=== PATIENT | male | born 1935 | race Caucasian/White ===

== ENCOUNTER 2016-07-19 20:05 | Inpatient (IN) | payer MEDICARE, OTHER ==
--- NOTE | ~2016-07-19 | HP ---
History And Physical [place] [id number] [place]. [address] NAME: NIURKA GALLO : 34 STATUS : ADM IN PAT#: [id number] AGE: 80 ADM/REG DATE : 07/19/16 MR#: [id number] REPORT SERV DATE: 07/20/16 DICTATED BY: JESSIKANIURKA ZARA DATE: 07/19/16 REPORT STATUS : Draft TRANSCRIBED BY: MODL DATE: 07/19/16 DATE OF ADMISSION: 07/19/2016 POINT OF ENTRY: [facility] Emergency Department Primary care physician is Dr. Reese of [place], [place]. PRIMARY AGRICULTURAL ENGINEER: Dr. Solo Anand. PRIMARY INFORMATION TECHNOLOGY ANALYST: Dr. Lawton of [place], [place]. CHIEF COMPLAINT: Low blood counts, black stools. HISTORY OF PRESENT ILLNESS: Mr. Gallo is an 80-year-old gentleman with a history of atrial fibrillation, on Xarelto anticoagulation; coronary artery disease; diastolic dysfunction, wci-fuucphq-saksbjnbm diabetes mellitus 2; and hypertension, who presents to the emergency department today with reports of a few week history of black tarry stools, associated shortness of breath, and weakness. Majority of history is obtained from the patient's who is at bedside as the patient has had anoxic brain injury in the past secondary to ventricular fibrillation arrest and is a poor historian. reports that he has had intermittent black tarry stools over the past few weeks. She also noted that he has become short of breath and very weak over the last few weeks which prompted their visit to the primary care doctor's office today for a visit and labs which returned as abnormally low. I do not have the results of those at this time and they were instructed to present to the emergency department. reports the patient has had a bleed on Coumadin about six months ago and underwent EGD by Dr. Lawton which at that time showed a slow bleed, location unknown that required some clipping. The patient is currently on aspirin as well as Xarelto. She denies any NSAID use, BC Powder or Goody's Powder, Plavix. He is on omeprazole at home. Initial evaluation in the emergency department with a hemoglobin of 7.7, hematocrit is 23.4. We do not have any recent labs for comparison. His occult stool was grossly positive for melena. Remainder of his labs otherwise unremarkable. Vital signs are stable. The patient was started on Protonix bolus and then a drip and admitted to the Hospitalist Service. REVIEW OF SYSTEMS: Comprehensive system otherwise negative unless listed in history of present illness. PREVIOUS MEDICAL HISTORY: 1. Coronary disease with prior angioplasty. 2. Carotid arterial disease, status post angioplasty and stenting. 3. Hypertension. History And Physical [address] [address] NAME: NIURKA GALLO : 34 STATUS : ADM IN [facility]#: [id number] AGE: 80 ADM/REG DATE : 07/19/16 MR#: [id number] REPORT SERV DATE: 07/20/16 DICTATED BY: NIURKA ROSEN DATE: 07/19/16 REPORT STATUS : Draft TRANSCRIBED BY: GREGG DATE: 07/19/16 4. History of VF arrest with anoxic brain injury. 5. Chronic left bundle branch block. 6. Atrial fibrillation, on Xarelto anticoagulation. 7. Diastolic dysfunction. 8. Rzj-pqtbqqw-bjlarhhrx diabetes mellitus type 2. 9. BPH. 10.History of prior GI bleed. 11.COPD. SURGICAL HISTORY: 1. Appendectomy. 2. Back surgery. 3. Carotid arterial stenting. 4. Cardiac angioplasty. 5. BiV pacemaker/MANAGER BACKGROUND. 6. TURP. ALLERGIES: TO CODEINE. HOME MEDICATIONS: 1. Tudorza one puff inhalation b.i.d. 2. Norvasc 10 mg daily. 3. Aspirin 81 mg daily. 4. Diana 180 mg daily. 5. Lasix 40 mg daily. 6. Neurontin 600 mg b.i.d. 7. Namenda 10 mg b.i.d. 8. Metformin 500 mg t.i.d. 9. Toprol-XL 50 mg b.i.d. 10.Multivitamin one tab daily. 11.[place]-3 fatty acid. 12.Fish oil 1000 mg daily. 13.Omeprazole 20 mg daily. 14.Xarelto 20 mg q.h.s. 15.Crestor 5 mg at bedtime. 16.Valsartan 320 mg daily. SOCIAL HISTORY: Denies any tobacco, alcohol, or illicits. FAMILY MEDICAL HISTORY: Mother with Alzheimer's dementia. Father with coronary artery disease. Siblings with Alzheimer's dementia. LABS AND IMAGIN. White count is 9.8, hemoglobin is 7.7, hematocrit is 23.4, and platelet count is 198. INR 1.4. 2. Sodium is 139, potassium 4.4, chloride 106, carbon dioxide 27, BUN 21, creatinine 1.06, glucose is 103, calcium is 8.6. Protein is 6.3, albumin is 3.0, bilirubin is 0.2, ALT History And Physical [address] [address] NAME: NIURKA GALLO : 34 STATUS : ADM IN PAT#: [id number] AGE: 80 ADM/REG DATE : 07/19/16 MR#: [id number] REPORT SERV DATE: 07/20/16 DICTATED BY: NIURKA ROSEN DATE: 07/19/16 REPORT STATUS : Draft TRANSCRIBED BY: MODLanette DATE: 07/19/16 is 18, AST 14, alkaline phosphatase is 76. 3. Chest x-ray and EKG are pending at the time of dictation. PHYSICAL EXAMINATION: VITAL SIGNS: Temperature is 98.6 degrees Fahrenheit, pulse is 83, respirations 16, saturating 97% on room air, blood pressure 154/70, on recheck, blood pressure is 156/78, pulse is 78. GENERAL: The patient is awake, alert, in no acute distress. Resting comfortably in bed. He is a well-developed, well-nourished, elderly male. is at bedside. HEENT: Atraumatic and normocephalic. Moist mucous membranes. Pupils are equal, round, and reactive to light and accommodation. Extraocular eye movements are intact. Does have some conjunctival and oral mucosal pallor. NECK: No jugular venous distention. No carotid bruits. CARDIAC: Regular rate and rhythm. No murmurs, rubs, or gallops. Normal S1 and S2. LUNGS: Clear to auscultation bilaterally. No wheezes, rhonchi, or rales. ABDOMEN: Soft, nontender, and nondistended with good bowel sounds. No rebound or guarding. No rigidity. EXTREMITIES: Warm and perfused. No cyanosis or clubbing. He has trace pedal edema. SKIN: Warm and dry. PSYCH: Affect is appropriate. NEURO: Alert and oriented x3. Cranial nerves II through XII are grossly intact. Speech is normal. Gait not assessed. ASSESSMENT AND PLAN: Mr. Gallo is an 80-year-old gentleman with a prior history of gastrointestinal bleed on anticoagulation, who presents with a few week history of intermittent black and tarry stools with associated shortness of breath and weakness and found to have severe anemia secondary to likely upper recurrent upper gastrointestinal bleed. Problem List: 1. Recurrent upper gastrointestinal bleed with melena. 2. Acute blood loss anemia. 3. Shortness of breath. 4. Weakness. 5. History of coronary artery disease. 6. History of diastolic dysfunction. 7. History of atrial fibrillation, on Xarelto. PLAN: 1. Upper GI bleed. We will hold the patient's aspirin as well as Xarelto. Trend out his hemoglobin and hematocrits q.6 hours and transfuse for hemoglobin less than 7. We will consult Gastroenterology as he does not have a local gastrologist here in town. We will place the patient n.p.o. after midnight and place the patient on a Protonix drip as he has received a Protonix bolus here in the ER. 2. Acute blood loss anemia. Transfuse to hemoglobin less than 7, q.6 hours hemoglobin and hematocrits. 3. Shortness of breath and weakness, likely secondary to symptomatic anemia, but given his History And Physical [address] [address] NAME: NIURKA GALLO : 34 STATUS : ADM IN [facility]#: [id number] AGE: 80 ADM/REG DATE : 07/19/16 MR#: [id number] REPORT SERV DATE: 07/20/16 DICTATED BY: NIURKA ROSEN DATE: 07/19/16 REPORT STATUS : Draft TRANSCRIBED BY: MODLanette DATE: 07/19/16 cardiac history, we will check an EKG, chest x-ray, BNP as well as cardiac enzymes. Provide some very gentle IV fluid hydration. 4. Diastolic dysfunction. There does not appear to be any evidence of systolic congestive heart failure. His last echocardiogram from fall in our system shows preserved ejection fraction with some mild diastolic dysfunction. does report some history of volume overload in the past. We will continue the patient's home Lasix and give Lasix after transfusion if it is needed. 5. Puf-bwuhqjm-bahlkoyux diabetes mellitus type 2. Holding the patient's metformin. Place him on a sliding scale. 6. Coronary artery disease. The patient denies any chest pain, but does report shortness of breath and weakness which I suspect again is symptomatic anemia. We will check an EKG and cardiac enzymes. 7. DVT prophylaxis. TEDs and SCDs given bleeding. 8. Code Status: The patient wishes to be full code. JCAmari/MODL Niurka Rosen MD / [id number] CC: MD Dr. Hugh Rogel
--- NOTE | ~2016-07-19 | CN ---
Consultation Report [facility] [address] [place]. [address] NAME: NIURKA GALLO : 34 STATUS : ADM IN PAT#: [id number] AGE: 80 ADM/REG DATE : 07/19/16 MR#: [id number] REPORT SERV DATE: 07/21/16 DICTATED BY: DULCE MARIA PETERSON DATE: 07/21/16 REPORT STATUS : Draft TRANSCRIBED BY: MODL DATE: 07/21/16 GI CONSULTATION DATE OF CONSULTATION: 07/20/2016 REASON FOR CONSULTATION: Anemia and melena. HISTORY OF PRESENT ILLNESS: Mr. Gallo is an 80-year-old gentleman with a history of diabetes, coronary artery disease, COPD, had a recent episode of ventricular fibrillation and subsequent anoxic brain injury, and has had an EGD approximately six months ago per his for GI bleed, and at that time, reportedly had a "slow bleed," which was clipped, unclear exactly the nature of this bleed. He had done well up until recently when he had one week of dark stools, increasing weakness, and shortness of breath. Subsequently, he was brought to the hospital by his . PAST SURGICAL HISTORY: TURP, pacemaker placement, back surgery, appendectomy. PAST MEDICAL HISTORY: Coronary artery disease, status post stent placement; BPH; diabetes; COPD; hypertension; ventricular fibrillation; anoxic brain injury. SOCIAL HISTORY: No smoking, alcohol, or drug use. MEDICATIONS: Reviewed. ALLERGIES: REVIEWED. PHYSICAL EXAMINATION: VITAL SIGNS: Patient is afebrile. Vital signs are stable. GENERAL: The patient is awake, alert, and oriented. HEENT: Atraumatic, normocephalic. Anicteric. Mucous membranes moist. CARDIAC: S1, S2. ABDOMEN: Soft, obese, nontender, nondistended. Bowel sounds normoactive. LABORATORY DATA: WBC 10.2, hemoglobin 7.9, hematocrit 24.4, platelets 216. INR is 1.2. Sodium 140, potassium 4.2, chloride 108, bicarb 24, BUN 17, creatinine 0.9, glucose 203. IMPRESSION AND PLAN: Concern for upper GI bleed given dark stools. Has history a "slow bleed," status post clipping on EGD six months ago. Prior to that, five years ago, when he also had an episode of melena on Coumadin. Has been off Xarelto the past few days, last dose was Tuesday night. We will also have him scheduled for an EGD on the with anesthesia to sedate. I reviewed the procedure, indications, risks, benefits, and alternatives, and they are agreeable to proceed. Consultation Report [facility] [address] [place] [address] NAME: NIURKA GALLO : 34 STATUS : ADM IN [facility]#: [id number] AGE: 80 ADM/REG DATE : 07/19/16 MR#: [id number] REPORT SERV DATE: 07/21/16 DICTATED BY: DULCE MARIA PETERSON DATE: 07/21/16 REPORT STATUS : Draft TRANSCRIBED BY: GREGG DATE: 07/21/16 NICKIE/GREGG Dulce Maria Peterson MD / [id number] CC: Vick Lawson M.D.
--- NOTE | ~2016-07-19 | EGD ---
EGD REPORT [facility] [address] [place] [place] [address] NAME: NIURKA GALLO : 34 STATUS : ADM IN PAT#: [id number] AGE: 80 ADM/REG DATE : 07/19/16 MR#: [id number] REPORT SERV DATE: 07/22/16 DICTATED BY: DULCE MARIA ESCOBEDO DATE: 07/22/16 REPORT STATUS : Draft TRANSCRIBED BY: [employer] DATE: 07/22/16 [facility] Center Patient Name: Niurka Gallo Date of : 1935 Attending MD: DULCE MARIA ESCOBEDO, Procedure Date No Time: 07/22/2016 Procedure: Upper GI endoscopy Indications: Anemia, Heme positive stool, Melena Medicines: Propofol per Anesthesia Complications: No immediate complications. Estimated blood loss: None. Procedure: Pre-Anesthesia Assessment: - ASA Grade Assessment: IV - A patient with severe systemic disease that is a constant threat to life. After obtaining informed consent, the endoscope was passed under direct vision. Throughout the procedure, the patient's blood pressure, pulse, and oxygen saturations were monitored continuously. The GIF [id number] [id number] was introduced through the mouth, and advanced to the third part of duodenum. As no bleeding was seen up to the third portion of the duodenum, the endoscope was removed and a pediatric colonoscope was used for push enteroscopy to evaluate for bleeding more distally. The PCF [id number] was introduced through the mouth, and advanced to the mid-jejunum. The upper GI endoscopy was accomplished with ease. The patient tolerated the procedure well. Findings: The examined esophagus was normal. The Z-line was found 43 cm from the incisors. Diffuse mild inflammation characterized by congestion (edema) and erythema was found in the gastric antrum. No biopsies or other specimens were collected for this exam. Two diminutive sessile polyps with no bleeding were found in the gastric fundus and in the gastric body. No biopsies or other specimens were collected for this exam. The examined duodenum was normal. The examined jejunum was normal. Impression: - Normal esophagus. - Z-line 43 cm from the incisors. - Gastritis. No specimens collected. - Two gastric polyps. No specimens collected. - Normal examined duodenum. - Normal examined jejunum. EGD REPORT [address] [place]. [address] NAME: NIURKA GALLO : 34 STATUS : ADM IN PAT#: [id number] AGE: 80 ADM/REG DATE : 07/19/16 MR#: [id number] REPORT SERV DATE: 07/22/16 DICTATED BY: DULCE MARIA ESCOBEDO DATE: 07/22/16 REPORT STATUS : Draft TRANSCRIBED BY: [employer] DATE: 07/22/16 Recommendation: - [facility] patient to [facility] for [facility] care. - Continue present medications. - Use Protonix (pantoprazole) 40 mg PO daily. - Full liquid diet today. - Obtain records from outlying facility (endoscopies/pathology). - If re-bleeds, consider capsule endoscopy Procedure Code(s): --- Professional --- 90981, Esophagogastroduodenoscopy, flexible, transoral; diagnostic, including collection of specimen(s) by brushing or washing, when performed (separate procedure) Diagnosis Code(s): --- Professional --- K29.70, Gastritis, unspecified, without bleeding K31.7, Polyp of stomach and duodenum D64.9, Anemia, unspecified R19.5, Other fecal abnormalities K92.1, Melena CPT copyright 2013 [employer]. All rights reserved. The codes documented in this report are preliminary and upon medical records coder review may be revised to meet current compliance requirements. DULCE MARIA ESCOBEDO, 07/22/2016 8:14 AM This report has been signed electronically. Number of Addenda: 0 Note Initiated On: 07/22/2016 7:37 AM Scope Withdrawal Time 0 hours 0 minutes 0 seconds [address] [place] [address]
--- NOTE | ~2016-07-19 | CN ---
Consultation Report [facility] [address] [place]. [address] NAME: NIURKA GALLO : 34 STATUS : ADM IN PAT#: [id number] AGE: 80 ADM/REG DATE : 07/19/16 MR#: [id number] REPORT SERV DATE: 07/20/16 DICTATED BY: SKYLAR BARRY DATE: 07/20/16 REPORT STATUS : Draft TRANSCRIBED BY: MODLanette DATE: 07/20/16 CARDIOLOGY CONSULTATION DATE OF CONSULTATION: INDICATION: GI bleed. HISTORY: The patient is an 80-year-old white male, usually followed by my partner, Dr. Anand. He has a history of sick sinus syndrome with paroxysmal atrial fibrillation ([id number] score of 4). He has a biventricular pacing system in place and his EP care is rendered by Dr. Hopper. Back in January, he had 58 hours of atrial fibrillation, and at that time, he was placed on Xarelto. He had done well until a couple of weeks ago when his family noted progressive weakness. The patient has had two prior GI bleeds one while on Coumadin and another slower bleed while on aspirin and Plavix. Shy of these issues, the patient lives independently, is integrated into his family, carries out his activities of daily living at home without difficulty. He is presently resting comfortably. CURRENT HOME MEDICATIONS: Aclidinium bromide b.i.d., amlodipine 10 per day, aspirin 81 a day, fexofenadine 180 a day, furosemide 40 a day, gabapentin 600 b.i.d., memantine hydrochloride 10 b.i.d., metformin 500 three times a day, metoprolol 50 b.i.d., multivitamins daily, omega-3 fatty acids daily, omeprazole 20 a day, rivaroxaban 20 a day, rosuvastatin 5 a day, valsartan 320 per day. ALLERGIES OR INTOLERANCES: Codeine. SOCIAL HISTORY: Lives independently, has a previous history of tobacco exposure. FAMILY HISTORY: Father had of an VT. Mother also had coronary artery disease. PAST MEDICAL HISTORY/REVIEW OF SYSTEMS: Positive for left ventricular dysfunction and the resynchronization therapy. Prior to that, he had underlying left bundle-branch block. He has aortic sclerosis. Last ejection fraction was 60% on 05/19/2015. He had a PCI in 1997 at [facility]. He has a history of carotid disease and right internal carotid angioplasty, 09/12/2009. It was around that time that he had a cardiac arrest. The details of that are not clear based on what his family members are saying. He has a history of hypertension, type 2 diabetes mellitus, iron deficiency anemia, and arrest at an outside hospital documented 09/2002. PHYSICAL EXAMINATION: GENERAL: An 80-year-old white male, pleasant, comfortable. Consultation Report [facility] [address] [facility] [place]. [address] NAME: NIURKA GALOL : 34 STATUS : ADM IN PAT#: [id number] AGE: 80 ADM/REG DATE : 07/19/16 MR#: [id number] REPORT SERV DATE: 07/20/16 DICTATED BY: SKYLAR BARRY DATE: 07/20/16 REPORT STATUS : Draft TRANSCRIBED BY: GREGG DATE: 07/20/16 VITAL SIGNS: Blood pressure 130/72, pulse 70 and regular, respirations 18. SKIN: No xanthelasmas. HEENT: Normocephalic. There is no pallor. Sclerae white. NECK: JVD is not elevated. CHEST: No crackles. CARDIAC: S1 normal, S2 is singular. There is a 1/6 systolic ejection murmur transmitted to the base. ABDOMEN: Soft. EXTREMITIES: Without edema. No clubbing. NEUROLOGIC: No focal deficits. LABORATORY DATA: BUN 17, creatinine 0.89, white count 10.2, hemoglobin 2.9, INR 1.2. ECG shows paced AV rhythm, rate 71. IMPRESSION: GI bleed. Agree that he will have to hold his Xarelto for the time being. Further recommendations as his course evolves. Whether or not long-term anticoagulation can be maintained will have to be discussed with the interior plant caretaker and family. RODOLFO/GREGG Skylar Barry M.D. / [id number] CC: Vick Lawson M.D. [facility]
--- NOTE | ~2016-07-19 | DS ---
Discharge Summary [facility] [address] [place]. [address] NAME: NIURKA GALLO : 33 STATUS : DIS IN PAT#: [id number] AGE: 80 ADM/REG DATE : 07/19/16 MR#: [id number] REPORT SERV DATE: 07/27/16 DICTATED BY: ERENDIRA LAWSON DATE: 07/23/16 REPORT STATUS : Draft TRANSCRIBED BY: MODL DATE: 07/23/16 ADMISSION DATE: 07/19/2016 DISCHARGE DATE: 07/23/2016 CONSULTANTS: 1. Jake Barry M.D. and Solo Anand M.D., Cardiology. 2. Christine Peterson MD, GI. DISCHARGE DIAGNOSES: 1. Acute upper gastrointestinal bleed with melena. 2. Acute blood loss anemia. 3. Sick sinus syndrome with previous paroxysmal atrial fibrillation and complete heart block with a biventricular implantable cardioverter defibrillator. 4. History of ventricular fibrillation arrest years ago due to severe hypokalemia with resultant hypoxic brain injury. 5. Diabetes mellitus type 2. 6. Hypertension. 7. Restless legs syndrome. 8. History of coronary artery disease with previous percutaneous transluminal coronary angioplasty. 9. History of peripheral arterial disease with previous carotid stent. 10.Previous heavy smoker more than 35 years ago. 11.Previous drug abuse more than 35 years ago. HISTORY: The patient presented to [facility] Emergency Room with black tarry stools. The patient had previous cardiac arrest due to severe hypokalemia and has some anoxic brain injury, so he does not pay attention to his stools, but his had just noticed that they had turned black. She is not exactly sure how long that had been going on because he often just goes into the restroom on his own and does not think to talk to her about it. The patient has had a previous hospitalization for upper gastrointestinal bleed with shock, and he was in [facility] Intensive Care. He has also had a least one other episode of GI bleed, was endoscoped by his GI physician in [place], and no specific cause was found. The patient has been on aspirin and Xarelto because of his previous coronary artery disease and because of his underlying atrial fibrillation. Most recent EGD that I could find from his GI doctor's records sent to us from [facility] was done on 11/14/2015 and it revealed a gastric polyp and it was removed and gastritis and a short segment of Lomeli's esophagus, visually diagnosed. The patient presented to our emergency room with these black stools. He denies taking any anti-inflammatories [id number] other than the aspirin. His hemoglobin was 7.7. He was referred to our team for inpatient care. His Xarelto was stopped. His aspirin was stopped. He was seen by Cardiology initially, Dr. Barry, who was on-call for Dr. Anand, and he agreed with holding the Xarelto and aspirin at this point in time. GI doctor, Dr. Peterson, saw the patient and proceeded to do EGD. The esophagus was normal. There was some diffuse mild gastritis, two diminutive sessile polyps Discharge Summary [address] [place]. [address] NAME: NIURKA GALLO : 33 STATUS : DIS IN PAT#: [id number] AGE: 80 ADM/REG DATE : 07/19/16 MR#: [id number] REPORT SERV DATE: 07/27/16 DICTATED BY: ERENDIRA LAWSON DATE: 07/23/16 REPORT STATUS : Draft TRANSCRIBED BY: GREGG DATE: 07/23/16 with no bleeding in the gastric fundus, duodenum was normal. She then used a pediatric colonoscope to complete a push enteroscopy and was able to see the jejunum and it was normal as well. She indicated that she felt it was okay for the patient to resume his anticoagulation. Dr. Anand and I individually at multiple different times spoke with the patient and the . The was always present for the discussions. We discussed the risk of restarting the anticoagulation medicine being the risk of GI bleeding and the risk of stopping these would be increased risk of stroke. The patient and talked about it independently and made their decision at this point in time that they do not want to restart any prescription anticoagulation medicine. Dr. Anand was in agreement with this. The patient will just be on aspirin. The patient and clearly understand he now has increased risk for stroke as a result. His hemoglobin on presentation was 7.7. He stabilized, and at discharge, his hemoglobin was 7.2. His iron was normal 84, ferritin normal at 659, TIBC was elevated at 475. We elected not to start oral iron underlying that because it would make his stools black and it would be impossible for the patient and providers to know if this was GI blood loss or just the iron. Therefore, if his PCP detects future iron deficiency, it would be strongly advised that the patient would receive intravenous iron such as Venofer or Ferrlecit as this would replenish his iron without changing the stool and causing panic. The patient has normal blood pressure, normal heart rate. He is up and ambulatory. He is completely asymptomatic. No angina. No shortness of breath. No abdominal discomfort. DISCHARGE MEDICATIONS: Norvasc 10 mg daily, Cymbalta 60 mg daily, Lasix 40 mg daily, gabapentin 600 mg b.i.d., Diana 180 mg daily, multivitamin once a day, Namenda 10 mg twice a day, Toprol-XL 50 mg b.i.d., fish oil 1000 mg daily, Prilosec 20 mg daily, Requip 1 mg at bedtime, Tudorza one puff inhaled twice a day, Diovan 320 mg daily (his creatinine here is 0.89), Tylenol 650 q.6 hours p.r.n. pain, metformin 500 mg t.i.d., Crestor 5 mg daily, and aspirin 81 mg daily. Again, we have stopped the Xarelto as described above. The patient is to follow up with his PCP, Dr. Reese, in [place] within the next week and with Dr. Solo Anand of Cardiology in three to four weeks. I spent 41 minutes today with the patient and with his in discharge planning. DICTATED BY: Erendira Lawson M.D. RSG/REMIL Erendira Lawson M.D. Discharge Summary [address] [address] NAME: NIURKA GALLO : 33 STATUS : DIS IN PAT#: [id number] AGE: 80 ADM/REG DATE : 07/19/16 MR#: [id number] REPORT SERV DATE: 07/27/16 DICTATED BY: ERENDIRA LAWSON DATE: 07/23/16 REPORT STATUS : Draft TRANSCRIBED BY: GREGG DATE: 07/23/16 / [id number] CC: Mirza Gonzalez MD Camille Sommer, MD Gordon Graham, M.D. DANIEL MARCADIS, MD
[2016-07-19 15:53] LABS: BASOPHILS 0.3 %; BASOPHILS ABSOLUTE 0.03 10/3/uL (0.0-0.16); EOSINOPHILS 3.4 %; EOSINOPHILS ABSOLUTE 0.33 10/3/uL (0.0-0.53); IMMATURE GRANULOCYTES 0.6 %; IMMATURE GRANULOCYTES ABSOLUTE 0.06 10/3/uL (0.0-0.11); LYMPHOCYTES 25.9 %; LYMPHOCYTES ABSOLUTE 2.54 10/3/uL (0.67-4.30); MEAN CORPUS HGB CONC 32.9 g/dL (32.0-36.0); MEAN CORPUSCULAR HEMOGLOB 28.1 pg (26.0-34.0); MEAN PLATELET VOLUME 8.2 fL (9.2-13.0); MONOCYTES 9.1 %; MONOCYTES ABSOLUTE 0.89 10/3/uL (0.21-1.20); NEUTROPHILS 60.7 %; NEUTROPHILS ABSOLUTE 5.96 10/3/uL (2.02-8.40); PLATELET COUNT 198 10/3/uL (150-400); RBC DISTRIBUTION WIDTH 15.2 % (12.0-16.0); WHITE BLOOD CELLS 9.8 10/3/uL (4.5-10.5)
[2016-07-19 15:54] LABS: HEMATOCRIT 23.4 % (40.0-51.0); HEMOGLOBIN 7.7 g/dL (13.6-17.8); MANUAL DIFF NO %; MEAN CORPUSCULAR VOLUME 85.4 fL (80-100); RED CELL COUNT 2.74 10/6/uL (4.7-6.1)
[2016-07-19 15:59] LABS: INTERNATIONAL NORMAL RATI 1.4 UNITS (-); PARTIAL THROMBO TIME 32.1 SEC (22.5-37.2)
[2016-07-19 16:04] LABS: PROTIME (NOT ORD) 17.2 SEC (12.0-14.5)
[2016-07-19 16:09] LABS: A/G RATIO 0.9 (0.7-1.9); ALKALINE PHOSPHATASE 76 U/L (45-117); CALCIUM, SERUM 8.6 MG/DL (8.5-10.4); CHLORIDE, SERUM 106 MMOL/L (96-112); CO2 (CARBON DIOXIDE) 27 MMOL/L (24-34); CREATININE 1.06 MG/DL (0.70-1.30); GFR AFRICAN AMERICAN 76 ML/MIN (>=60); GFR NON AFRICAN AMERICAN 65 ML/MIN (>=60); GLOBULIN 3.3 G/DL (2.5-4.1); GLUCOSE, SERUM 163 MG/DL (60-99); POTASSIUM, SERUM 4.4 MMOL/L (3.5-5.3); SGOT(AST) 14 U/L (5-40); SGPT(ALT) 18 U/L (5-65); SODIUM, SERUM 139 MMOL/L (135-148); TOTAL BILIRUBIN 0.2 MG/DL (0-1.2); TOTAL PROTEIN 6.3 G/DL (6.0-8.5)
[2016-07-19 16:10] LABS: BUN (BLOOD UREA NITROGEN) 21 MG/DL (6-23)
[~2016-07-19 20:05] MED LIST: ADVAIR115P INH; ALLEGRA180 PO; ASA5GR PO; ASAB PO; CRESTOR10 PO; CRESTOR5 MG PO; CYMBALTA60 PO; DIOVAN320 MG PO; DRONED400 PO; DSS PO; FISH-EPA1000 MG PO; GLUCPH PO; K-TABS10 MEQ PO; L40 PO; LOP50 PO; LOVENOX40 SC; MICROZIDE PO; MIRALAXPKT PO; MULTIVITAMI1 PO; NAMENDA10 MG PO; NEUR300 PO; NEUR600 PO; NORV10 PO; NORV5 PO; PCET PO; PLAVIX PO; PRILO PO; SPIRIVA INH; TOPXL50 PO; TUDORZA PRESS400 MCG INH; ULTRAM50 PO; XARELTO20 MG PO
[2016-07-19 20:47] LABS: TROPONIN I <0.02 NG/ML (<0.05)
[2016-07-19 22:54] LABS: HEMATOCRIT 22.4 % (40.0-51.0); HEMOGLOBIN 7.3 g/dL (13.6-17.8)
[2016-07-19 23:23] LABS: FREE T4 0.87 NG/DL (0.76-1.46); ULTRASENSITIVE TSH 2.84 MCIU/ML (0.358-3.740)
[2016-07-20 07:12] LABS: BASOPHILS 0.2 %; BASOPHILS ABSOLUTE 0.02 10/3/uL (0.0-0.16); EOSINOPHILS 3.5 %; EOSINOPHILS ABSOLUTE 0.36 10/3/uL (0.0-0.53); HEMOGLOBIN 8.4 g/dL (13.6-17.8); IMMATURE GRANULOCYTES 0.7 %; IMMATURE GRANULOCYTES ABSOLUTE 0.07 10/3/uL (0.0-0.11); LYMPHOCYTES 18.6 %; MEAN CORPUS HGB CONC 32.3 g/dL (32.0-36.0); MEAN CORPUSCULAR HEMOGLOB 27.3 pg (26.0-34.0); MEAN CORPUSCULAR VOLUME 84.4 fL (80-100); MEAN PLATELET VOLUME 8.2 fL (9.2-13.0); MONOCYTES 7.5 %; MONOCYTES ABSOLUTE 0.77 10/3/uL (0.21-1.20); NEUTROPHILS 69.5 %; NEUTROPHILS ABSOLUTE 7.12 10/3/uL (2.02-8.40); PLATELET COUNT 216 10/3/uL (150-400); RBC DISTRIBUTION WIDTH 15.2 % (12.0-16.0); RED CELL COUNT 3.08 10/6/uL (4.7-6.1); WHITE BLOOD CELLS 10.2 10/3/uL (4.5-10.5)
[2016-07-20 07:16] LABS: INTERNATIONAL NORMAL RATI 1.2 UNITS (-); PROTIME (NOT ORD) 14.9 SEC (12.0-14.5)
[2016-07-20 07:18] LABS: MANUAL DIFF NO %
[2016-07-20 07:23] LABS: BUN (BLOOD UREA NITROGEN) 17 MG/DL (6-23); CALCIUM, SERUM 8.7 MG/DL (8.5-10.4); CHLORIDE, SERUM 108 MMOL/L (96-112); CO2 (CARBON DIOXIDE) 24 MMOL/L (24-34); CREATININE 0.89 MG/DL (0.70-1.30); GFR AFRICAN AMERICAN 93 ML/MIN (>=60); GFR NON AFRICAN AMERICAN 80 ML/MIN (>=60); GLUCOSE, SERUM 203 MG/DL (60-99); POTASSIUM, SERUM 4.2 MMOL/L (3.5-5.3); SODIUM, SERUM 140 MMOL/L (135-148)
[2016-07-20 10:45] LABS: HEMATOCRIT 24.4 % (40.0-51.0); HEMOGLOBIN 7.9 g/dL (13.6-17.8)
[2016-07-20 16:05] LABS: HEMATOCRIT 25.4 % (40.0-51.0); HEMOGLOBIN 8.3 g/dL (13.6-17.8)
[2016-07-21 04:56] LABS: BASOPHILS 0.1 %; BASOPHILS ABSOLUTE 0.01 10/3/uL (0.0-0.16); EOSINOPHILS 4.1 %; HEMATOCRIT 25.3 % (40.0-51.0); HEMOGLOBIN 8.3 g/dL (13.6-17.8); IMMATURE GRANULOCYTES 0.4 %; IMMATURE GRANULOCYTES ABSOLUTE 0.04 10/3/uL (0.0-0.11); LYMPHOCYTES 16.3 %; MEAN CORPUS HGB CONC 32.8 g/dL (32.0-36.0); MEAN CORPUSCULAR HEMOGLOB 27.9 pg (26.0-34.0); MEAN CORPUSCULAR VOLUME 84.9 fL (80-100); MEAN PLATELET VOLUME 8.3 fL (9.2-13.0); MONOCYTES 9.9 %; MONOCYTES ABSOLUTE 0.97 10/3/uL (0.21-1.20); NEUTROPHILS 69.2 %; NEUTROPHILS ABSOLUTE 6.77 10/3/uL (2.02-8.40); PLATELET COUNT 233 10/3/uL (150-400); RBC DISTRIBUTION WIDTH 15.5 % (12.0-16.0); RED CELL COUNT 2.98 10/6/uL (4.7-6.1); WHITE BLOOD CELLS 9.8 10/3/uL (4.5-10.5)
[2016-07-21 04:58] LABS: MANUAL DIFF NO %
[2016-07-21 11:36] LABS: HEMATOCRIT 24.6 % (40.0-51.0); HEMOGLOBIN 7.9 g/dL (13.6-17.8)
[2016-07-22 05:23] LABS: BASOPHILS 0.3 %; BASOPHILS ABSOLUTE 0.02 10/3/uL (0.0-0.16); EOSINOPHILS 6.6 %; EOSINOPHILS ABSOLUTE 0.45 10/3/uL (0.0-0.53); HEMATOCRIT 24.5 % (40.0-51.0); HEMOGLOBIN 7.9 g/dL (13.6-17.8); IMMATURE GRANULOCYTES 0.3 %; IMMATURE GRANULOCYTES ABSOLUTE 0.02 10/3/uL (0.0-0.11); LYMPHOCYTES 22.8 %; LYMPHOCYTES ABSOLUTE 1.56 10/3/uL (0.67-4.30); MEAN CORPUS HGB CONC 32.2 g/dL (32.0-36.0); MEAN CORPUSCULAR HEMOGLOB 27.3 pg (26.0-34.0); MEAN CORPUSCULAR VOLUME 84.8 fL (80-100); MEAN PLATELET VOLUME 8.3 fL (9.2-13.0); MONOCYTES 9.8 %; MONOCYTES ABSOLUTE 0.67 10/3/uL (0.21-1.20); NEUTROPHILS 60.2 %; NEUTROPHILS ABSOLUTE 4.13 10/3/uL (2.02-8.40); PLATELET COUNT 219 10/3/uL (150-400); RBC DISTRIBUTION WIDTH 15.4 % (12.0-16.0); RED CELL COUNT 2.89 10/6/uL (4.7-6.1); WHITE BLOOD CELLS 6.9 10/3/uL (4.5-10.5)
[2016-07-22 05:30] LABS: MANUAL DIFF NO %
[2016-07-23 06:55] LABS: BASOPHILS 0.1 %; BASOPHILS ABSOLUTE 0.01 10/3/uL (0.0-0.16); EOSINOPHILS 5.9 %; EOSINOPHILS ABSOLUTE 0.42 10/3/uL (0.0-0.53); HEMATOCRIT 22.5 % (40.0-51.0); HEMOGLOBIN 7.2 g/dL (13.6-17.8); IMMATURE GRANULOCYTES 0.1 %; IMMATURE GRANULOCYTES ABSOLUTE 0.01 10/3/uL (0.0-0.11); LYMPHOCYTES 21.1 %; MEAN CORPUSCULAR VOLUME 84.3 fL (80-100); MEAN PLATELET VOLUME 8.1 fL (9.2-13.0); MONOCYTES 8.6 %; MONOCYTES ABSOLUTE 0.61 10/3/uL (0.21-1.20); NEUTROPHILS 64.2 %; NEUTROPHILS ABSOLUTE 4.56 10/3/uL (2.02-8.40); PLATELET COUNT 216 10/3/uL (150-400); RBC DISTRIBUTION WIDTH 15.4 % (12.0-16.0); RED CELL COUNT 2.67 10/6/uL (4.7-6.1); WHITE BLOOD CELLS 7.1 10/3/uL (4.5-10.5)
[2016-07-23 06:57] LABS: MANUAL DIFF NO %
[2016-07-23] MEDS ORDERED: CYMBALTA60 PO (09:35)
[2016-07-23] MEDS ORDERED: REQUIP1 PO (09:40)
[2016-07-23] MEDS ORDERED: ULTRAM50 PO (09:42)
[2016-07-23] MEDS ORDERED: T PO (09:43)
[2016-09-15] MEDS ORDERED: MIRALAX POWDER1 PKT PO (18:01)
[2016-09-15] MEDS ORDERED: MELA3 PO (18:05)
[2016-09-15] MEDS ORDERED: VITAMIN D2000 UNIT PO (18:06)
[2016-09-15] MEDS ORDERED: NEUR300 PO (18:06)
[2016-09-15] MEDS ORDERED: NEUR600 PO (18:07)
[2016-09-15] MEDS ORDERED: VOLTAREN1 % (18:08)
[2016-09-15] MEDS ORDERED: NORV10 PO (18:19)
[2016-09-15] MEDS ORDERED: TOPXL50 PO (18:20)
[2016-09-15] MEDS ORDERED: FISH-EPA1000 MG PO (18:20)
[2016-09-15] MEDS ORDERED: BLOOD BUILDER (18:27)
== END 2016-07-23 11:04 | disposition home or self-care (01) | DRG 378 ==
LOC: ER 20:05 → 6NO 20:24
PROVIDERS: Emergency Medicine; Hospitalist; Internal Medicine; Internal Medicine Gastroenterology
PROC: 0DJD8ZZ Inspection of Lower Intestinal Tract, Via Natural or Artificial Opening Endoscopic (ICD-10-PCS; 2016-07-22)
PROC: 0DJ08ZZ Inspection of Upper Intestinal Tract, Via Natural or Artificial Opening Endoscopic (ICD-10-PCS; principal; 2016-07-22 07:44)
DX: K92.1 Melena (principal); D62 Acute posthemorrhagic anemia; G93.1 Anoxic brain damage, not elsewhere classified; I47.2 Ventricular tachycardia; I48.0 Paroxysmal atrial fibrillation; J44.9 Chronic obstructive pulmonary disease, unspecified; G25.81 Restless legs syndrome; K22.70 Barrett's esophagus without dysplasia; E11.9 Type 2 diabetes mellitus without complications; I25.10 Atherosclerotic heart disease of native coronary artery without angina pectoris; N40.0 Benign prostatic hyperplasia without lower urinary tract symptoms; K29.70 Gastritis, unspecified, without bleeding; K31.7 Polyp of stomach and duodenum; I35.8 Other nonrheumatic aortic valve disorders; I44.7 Left bundle-branch block, unspecified; Z79.82 Long term (current) use of aspirin; Z87.891 Personal history of nicotine dependence; Z95.5 Presence of coronary angioplasty implant and graft; Z95.810 Presence of automatic (implantable) cardiac defibrillator; Z79.84 Long term (current) use of oral hypoglycemic drugs; Z79.01 Long term (current) use of anticoagulants; Z88.5 Allergy status to narcotic agent
CPT/HCPCS: 36415; 71010; 80048; 80053; 82607; 82728; 82962; 83540; 83550; 83880; 84439; 84443; 84484; 85014; 85018; 85025; 85610; 85730; 86850; 86900; 86901; 86920; 93005; 99291; A9270-GY; C9113; J0360; J0690